=== PATIENT | female | born 1985 | race Two or more races ===

== ENCOUNTER 2017-06-20 08:57 | Emergency (ER) | payer MEDICAID, MEDICARE ==
[~2017-06-20] VITALS: Ht 157.5 cm; Wt 79.8 kg
[2017-06-20] MEDS ORDERED: OMEP40CA6 PO (09:40)
[2017-06-20] MEDS ORDERED: DEXT7.5T5 PO (09:40)
[2017-06-20] MEDS ORDERED: METO10TA82 PO (09:40)
[2017-06-20] MEDS ORDERED: OXYC-302 PO (09:40)
[2017-06-20 10:13] LABS: RAPID INFLUENZA A Negative (Negative); RAPID INFLUENZA B Negative (Negative)
[2017-06-20 10:45] VITALS: BP 131/104
== END 2017-06-20 10:50 | disposition home or self-care (01) ==
LOC: ED 10:28
DX: J00 Acute nasopharyngitis [common cold] (principal); F17.200 Nicotine dependence, unspecified, uncomplicated
CPT/HCPCS: 71020; 87081; 87400; 87880; 99285